=== PATIENT | female | born 1995 | race Two or more races ===

== ENCOUNTER 2017-07-02 07:06 | Inpatient (IN) | payer OTHER ==
[2017-07-02] MEDS ORDERED: BUTORPHANOL 2 MG INJ IV (08:00)
[2017-07-02] MEDS ORDERED: OXYTOCIN 30 UNITS/LR 500 ML IV ×2 (08:00→18:00)
[2017-07-02] MEDS ORDERED: LIDOCAINE 1% (MPF) 30 ML INJ INJ (08:00)
[2017-07-02] MEDS ORDERED: CARBOPROST 250 MCG INJ IM ×2 (08:00→18:00)
[2017-07-02] MEDS ORDERED: METHYLERGONOVINE 0.2 MG INJ IM ×2 (08:00→18:00)
[2017-07-02] MEDS ORDERED: MISOPROSTOL 200 MCG TAB PR ×2 (08:00→18:00)
[2017-07-02 08:37] LABS: ADD MAN DIFF? NO
[2017-07-02 08:43] LABS: BASOPHIL # 0.1 10^3/ul (0.0-0.1); BASOPHILS % 0.4 % (0.0-2.0); EOSINOPHILS # 0.1 10^3/ul (0.0-0.5); EOSINOPHILS % 0.5 % (0.0-7.0); HEMATOCRIT 38.3 % (37.0-47.0); LYMPHOCYTES # 2.1 10^3/ul (0.8-2.9); LYMPHOCYTES % 13.8 % (15.0-51.0); MEAN CORPUSCULAR HEMOGLOBIN 31.2 pg (29.0-33.0); MEAN CORPUSCULAR HGB CONC 33.9 g/dl (32.0-37.0); MEAN CORPUSCULAR VOLUME 91.8 fl (82.0-101.0); MEAN PLATELET VOLUME 10.6 fl (7.4-10.4); MONOCYTE # 1.1 10^3/ul (0.3-0.9); MONOCYTES % 7.5 % (0.0-11.0); NEUTROPHIL # 11.1 10^3/ul (1.6-7.5); NEUTROPHILS % 73.2 % (39.0-77.0); PLATELET COUNT 221 10^3/UL (140-415); RED BLOOD COUNT 4.17 10^6/ul (4.20-5.40); RED CELL DISTRIBUTION WIDTH 13.7 % (11.5-14.5)
[2017-07-02 08:43] LABS: WHITE BLOOD COUNT 15.2 10^3/ul (4.8-10.8)
[2017-07-02] MEDS ORDERED: FENTAnyl 2MCG/ML-ROPIV 0.2% 100 ML (09:02)
[2017-07-02 09:11] LABS: INR 0.92; PROTIME 12.4 Sec (11.9-14.9)
[2017-07-02 09:12] LABS: PARTIAL THROMBOPLASTIN TIME 25.4 Sec (25.0-35.0)
[2017-07-02] MEDS: LACTATED RINGER'S 1,000 ML IV ×3 (09:27→14:19)
[2017-07-02] MEDS ORDERED: DIPHENHYDRAMINE 50 MG INJ IV (10:00)
[2017-07-02] MEDS ORDERED: NALOXONE (0.4 MG/ML) INJ IV (10:00)
[2017-07-02] MEDS ORDERED: ONDANSETRON 4 MG INJ IV ×2 (10:00→18:00)
[2017-07-02] MEDS: FENTAnyl 2MCG/ML-ROPIV 0.2% 100 ML BAG EPI (10:01)
[2017-07-02 15:00] LABS: RAPID PLASMA REAGIN NONREACTIVE (NR)
[2017-07-02 15:03] LABS: HEPATITIS B SURFACE ANTIGEN NEGATIVE (NEGATIVE)
[2017-07-02] MEDS: OXYTOCIN 30 UNITS/LR 500 ML IV ×3 (17:03→21:14)
[2017-07-02] MEDS ORDERED: ACETAMINOPHEN 325 MG TAB PO ×2 (18:00)
[2017-07-02] MEDS ORDERED: MAGNESIUM HYDROXIDE 30ML CUP PO (18:00)
[2017-07-02] MEDS: IBUPROFEN 600 MG TAB PO (18:16)
[2017-07-02] MEDS: LACTATED RINGER'S 1,000 ML IV* (20:04)
[2017-07-02] MEDS: BENZOCAINE 20% 56 ML SPRAY TOP (22:10)
[2017-07-02] MEDS: WITCH HAZEL/GLYCERIN PAD PR (22:10)
[2017-07-02] MEDS: LANOLIN 7 GM TUBE TOP (22:10)
[2017-07-03] MEDS: LACTATED RINGER'S 1,000 ML IV* ×3 (01:53→17:53)
[2017-07-03] MEDS: SENNA/DOCUSATE NA (8.6MG/50MG) TAB PO (03:22)
[2017-07-03] MEDS: IBUPROFEN 600 MG TAB PO (03:22)
[2017-07-03 11:10] LABS: ADD MAN DIFF? NO
[2017-07-03 11:14] LABS: BASOPHILS % 0.2 % (0.0-2.0); EOSINOPHILS # 0.1 10^3/ul (0.0-0.5); EOSINOPHILS % 0.8 % (0.0-7.0); HEMATOCRIT 30.6 % (37.0-47.0); HEMOGLOBIN 10.3 g/dl (12.0-16.0); LYMPHOCYTES # 2.1 10^3/ul (0.8-2.9); MEAN CORPUSCULAR HEMOGLOBIN 30.7 pg (29.0-33.0); MEAN CORPUSCULAR HGB CONC 33.7 g/dl (32.0-37.0); MEAN CORPUSCULAR VOLUME 91.3 fl (82.0-101.0); MEAN PLATELET VOLUME 10.5 fl (7.4-10.4); MONOCYTE # 1.2 10^3/ul (0.3-0.9); MONOCYTES % 8.2 % (0.0-11.0); NEUTROPHIL # 10.4 10^3/ul (1.6-7.5); NEUTROPHILS % 73.7 % (39.0-77.0); PLATELET COUNT 187 10^3/UL (140-415); RED BLOOD COUNT 3.35 10^6/ul (4.20-5.40); RED CELL DISTRIBUTION WIDTH 13.8 % (11.5-14.5)
[2017-07-03 11:14] LABS: WHITE BLOOD COUNT 14.1 10^3/ul (4.8-10.8)
[2017-07-03] MEDS: DIBUCAINE 1% 30 GM OINT PR (17:36)
[2017-07-04] MEDS: IBUPROFEN 600 MG TAB PO (04:30)
[2017-07-04] MEDS: FENTAnyl 2MCG/ML-ROPIV 0.2% 100 ML BAG EPI (08:51)
[2017-07-04] MEDS: SENNA/DOCUSATE NA (8.6MG/50MG) TAB PO (09:27)
[2017-07-04] MEDS: WITCH HAZEL/GLYCERIN PAD PR (13:40)
[2017-07-04] MEDS: BENZOCAINE 20% 56 ML SPRAY TOP (13:40)
== END 2017-07-04 14:15 | disposition home or self-care (01) | DRG 775 ==
LOC: OBT 07:06 → L-D 07:07 → OBT 07:30 → L-D 07:30 → PP1 21:37
PROVIDERS: Obstetrics & Gynecology
PROC: 10E0XZZ Delivery of Products of Conception, External Approach (ICD-10-PCS; principal; 2017-07-02)
PROC: 0KQM0ZZ Repair Perineum Muscle, Open Approach (ICD-10-PCS; 2017-07-02)
DX: O70.9 Perineal laceration during delivery, unspecified (principal); Z37.0 Single live birth; Z3A.38 38 weeks gestation of pregnancy
CPT/HCPCS: 62319; 76815; 85025; 85610; 85730; 86592; 86850; 86900; 86901; 87340